=== PATIENT | female | born 1945 | race Caucasian/White ===

== ENCOUNTER 2016-12-22 10:39 | Inpatient (IN) | payer OTHER ==
--- NOTE | ~2016-12-22 | DS ---
Discharge Summary [id number] [facility] [place]. [address] NAME: MARINA RAPHAEL : 49 STATUS : DIS IN PAT#: [id number] AGE: 71 ADM/REG DATE : 12/22/16 MR#: [id number] REPORT SERV DATE: 12/24/16 DICTATED BY: JOSE WILCOX DATE: 12/23/16 REPORT STATUS : Draft TRANSCRIBED BY: MODL DATE: 12/23/16 ADMISSION DATE: 12/22/2016 DISCHARGE DATE: 12/23/2016 DISCHARGE DIAGNOSIS: Cerebrovascular accident, resolving status post tPA. The patient had dysarthria, left-sided weakness, and right-sided numbness. She had an NIHSS scale [address] been seen [address] Dr[address] Blank, Neurology. Given tPA. Had marked improvement. This morning, still left with mild dysarthria that had improved and good function of left lower extremity. Some numbness remains on the right side. The patient's vital signs are stable. She is afebrile. Awake, alert, and oriented x3. Echo evaluation is almost complete. Speech evaluation with recommendation to [facility] for further speech therapy. Slight dysarthria remains. Her TSH is 0.005, suppressed. She is taking her own thyroid medications. Renal artery ultrasound that was done for stenosis is normal. MRI of the brain and CT of the brain were normal. SHAINA/LUIS Jose Wilcox M.D. / [id number] CC: Syd Reyes M.D. Seong-joo Jeong, M.D.
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
[2016-12-22 10:29] LABS: BASOPHILS 0.2 %; BASOPHILS ABSOLUTE 0.02 10/3/uL (0.0-0.16); EOSINOPHILS ABSOLUTE 0.09 10/3/uL (0.0-0.53); HEMATOCRIT 40.9 % (36.0-48.0); HEMOGLOBIN 14.3 g/dL (12.0-16.0); IMMATURE GRANULOCYTES 0.1 %; IMMATURE GRANULOCYTES ABSOLUTE 0.01 10/3/uL (0.0-0.11); LYMPHOCYTES 30.4 %; LYMPHOCYTES ABSOLUTE 2.67 10/3/uL (0.67-4.30); MANUAL DIFF NO %; MEAN CORPUSCULAR HEMOGLOB 30.8 pg (26.0-34.0); MEAN PLATELET VOLUME 10.2 fL (9.2-13.0); NEUTROPHILS 60.3 %; NEUTROPHILS ABSOLUTE 5.28 10/3/uL (2.02-8.40); PLATELET COUNT 243 10/3/uL (150-400); RBC DISTRIBUTION WIDTH 12.5 % (12.0-16.0); RED CELL COUNT 4.65 10/6/uL (4.0-5.6); WHITE BLOOD CELLS 8.8 10/3/uL (4.5-10.5)
[2016-12-22 10:36] LABS: INTERNATIONAL NORMAL RATI 1.1 UNITS (-); PARTIAL THROMBO TIME 25.6 SEC (22.5-37.2); PROTIME (NOT ORD) 14.1 SEC (12.0-14.5)
[~2016-12-22 10:39] MED LIST: ADVAIR250 INH; ALIGN4 MG PO; BIO IDENTICAL PO; COZAAR100 MG PO; ESTROGEN CREAM TOP; LUTEIN10 MG OR; MACRODANTIN 10100 MG PO; MULTIPLE VIT PO; NASONEX NAS; NEXIUM40 PO; PR25 PO; SPIRO50 PO; SUCR PO; ZOFRAN4 PO; ZYRTEC ALLGY10 MG PO
[2016-12-22 10:44] LABS: ALBUMIN 3.5 G/DL (3.5-5.0); CALCIUM, SERUM 8.4 MG/DL (8.5-10.4); CHLORIDE, SERUM 109 MMOL/L (96-112); CO2 (CARBON DIOXIDE) 23 MMOL/L (24-34); CREATININE 0.83 MG/DL (0.55-1.02); GFR AFRICAN AMERICAN 83 ML/MIN (>=60); GFR NON AFRICAN AMERICAN 72 ML/MIN (>=60); GLOBULIN 3.5 G/DL (2.5-4.1); GLUCOSE, SERUM 99 MG/DL (60-99); POTASSIUM, SERUM 3.4 MMOL/L (3.5-5.3); SGOT(AST) 15 U/L (5-40); SGPT(ALT) 21 U/L (5-65); SODIUM, SERUM 142 MMOL/L (135-148); TOTAL BILIRUBIN 0.5 MG/DL (0-1.2); TROPONIN I <0.02 NG/ML (<0.05)
[2016-12-22 10:45] LABS: ALKALINE PHOSPHATASE 59 U/L (45-117); BUN (BLOOD UREA NITROGEN) 15 MG/DL (6-23)
[2016-12-22] MEDS ORDERED: COZAAR100 MG PO (10:53)
[2016-12-22] MEDS ORDERED: NORV10 PO (10:53)
[2016-12-22] MEDS ORDERED: HORMONE COMPOUND (10:53)
[2016-12-22] MEDS ORDERED: NATURE-THROI16.25 MG PO (10:54)
[2016-12-22] MEDS ORDERED: NATURE THROID PO (10:55)
[2016-12-22] MEDS ORDERED: NATURE-THROID PO (10:55)
[2016-12-22] MEDS ORDERED: GARLIC PO (10:55)
[2016-12-22] MEDS ORDERED: NITROSTAT0.4 MG SL (10:55)
[2016-12-22] MEDS ORDERED: CHOLINE PO (10:56)
[2016-12-22] MEDS ORDERED: HAWTHORN BER500 MG PO (10:56)
[2016-12-22 18:49] LABS: CHOL/HDL RATIO(NOT ORDER) 2.8 (0-5); CHOLESTEROL 152 MG/DL (< 200); CPK 65 U/L (0-200); HDL CHOLESTEROL 54 MG/DL (> 49); LDL CHOLESTEROL 70 MG/DL (< 130); NON-HDL CHOLESTEROL 98 MG/DL (< 160); TRIGLYCERIDE 141 MG/DL (< 150); TROPONIN I <0.02 NG/ML (<0.05)
[2016-12-22 18:52] LABS: CK-MB < 0.5 NG/ML; ULTRASENSITIVE TSH < 0.005 MCIU/ML (0.358-3.740)
[2016-12-23 02:25] LABS: CPK 49 U/L (0-200); TROPONIN I <0.02 NG/ML (<0.05)
[2016-12-23 02:28] LABS: CK-MB < 0.5 NG/ML
[2016-12-23] MEDS ORDERED: ASA5GR PO (15:51)
[2016-12-23] MEDS ORDERED: LIPITOR40 PO (15:54)
[2016-12-23] MEDS ORDERED: B1100 PO (15:56)
[2017-01-13 08:02] LABS: CREATININE 0.8 MG/DL (0.55-1.02)
[2017-01-19] MEDS ORDERED: NATURE-THROI16.25 MG PO (08:54)
[2017-01-19] MEDS ORDERED: ASAB PO (08:55)
[2017-01-19] MEDS ORDERED: KRILLOIL (08:56)
[2017-01-19] MEDS ORDERED: TOPXL25 PO (08:56)
[2017-01-20] MEDS ORDERED: NITROSTAT0.4 MG SL (07:36)
== END 2016-12-23 16:48 | disposition home or self-care (01) | DRG 63 ==
LOC: ER 10:39 → CCU 13:31
PROVIDERS: Emergency Medicine; Internal Medicine Critical Care Medicine; Psychiatry & Neurology Neurology
DX: I63.9 Cerebral infarction, unspecified (principal); I36.1 Nonrheumatic tricuspid (valve) insufficiency; I10 Essential (primary) hypertension; R47.1 Dysarthria and anarthria; R53.1 Weakness; I25.10 Atherosclerotic heart disease of native coronary artery without angina pectoris; E03.9 Hypothyroidism, unspecified; R07.9 Chest pain, unspecified; I34.0 Nonrheumatic mitral (valve) insufficiency; R94.39 Abnormal result of other cardiovascular function study; Z88.6 Allergy status to analgesic agent; Z88.8 Allergy status to other drugs, medicaments and biological substances
CPT/HCPCS: 36415; 70450; 70496; 70498; 70551; 71010; 80053; 80061; 82140; 82550; 82553; 82607; 82746; 82962; 83036; 84443; 84484; 85025; 85610; 85730; 86850; 86900; 86901; 87641; 92523-GN; 93005; 93017; 93306; 93975; 96365; 97161-GP; 97166-GO; 99291; A9270-GY; J2997; Q9967

== ENCOUNTER 2017-02-08 13:22 | Inpatient (IN) | payer OTHER ==
--- NOTE | ~2017-02-08 | DS ---
Discharge Summary [facility] [address] [facility] [place]. [address] NAME: MARINA RAPHAEL : 49 STATUS : DIS IN PAT#: [id number] AGE: 71 ADM/REG DATE : 02/08/17 MR#: [id number] REPORT SERV DATE: 02/11/17 DICTATED BY: JOSE HILL DATE: 02/11/17 REPORT STATUS : Draft TRANSCRIBED BY: MODL DATE: 02/11/17 ADMISSION DATE: 02/08/2017 DISCHARGE DATE: 02/11/2017 DRYWALL CONTRACTOR: Dr. Stone. ENT: Dr. Del Cid. FINAL DIAGNOSES: 1. Hypotension with history of hypertension. 2. Possible transient ischemic attack with possible history of recent cerebrovascular accident with left hemiparesis. 3. Chest pain and supraventricular tachycardia. 4. Hypothyroidism with low TSH and normal free T4. DIAGNOSTIC EXAM: CAT scan of the brain without contrast showing no evidence of acute intracranial pathology. Chest x-ray, no acute cardiopulmonary abnormality. MRI of the brain showing no acute intracranial pathology. Normal MRI of the brain, stable exam. MRA of the head showing unremarkable intracranial MRA. MRA of the neck showing unremarkable MRA of the carotid arteries. No significant atherosclerotic plaque or stenosis. Normal caliber and antegrade flow bilateral vertebral arteries. HOSPITAL COURSE: Please refer to the H and P done by Dr. Yang dated 02/08/2017. Briefly, this is a 71-year-old female, who had a possible stroke with left hemiparalysis six weeks ago, got tPA, and improved. The patient then went home, still having some left leg weakness. Then, the patient came to the emergency room on the day of admission for an episode of speech loss. The patient called her pre fabricator and was told to come to the emergency room, as they thought that she was having another stroke. Further history from the patient revealed that she actually was having these periods of dizziness and this episode wherein she feels like she is going to pass out, but really does not lose consciousness and she gets better after a few seconds. She was found to have low blood pressure and her Norvasc and losartan were held, and we got Neuro and Cardiology involved. Cardiology saw that the patient had a period of SVT, cleared the heart, and signed off. They said that it might be the thyroid supplementation, as the TSH is low. The patient also got a Neurology consult, where the above tests were done and they mentioned that the patient might not have a stroke, as the MRA and CAT scan look normal and also said that it might be too much thyroid medications. When presented with this to the patient, she said that Dr. Del Cid has been following her up and gets periodic tests and placed her on these medications. She would want to follow up with Dr. Del Cid, but I mentioned that it might be worthwhile for her to see an supervisor nut processing as well, but I would defer this to her present doctors. Meanwhile, with the stoppage of two of her blood pressure medications and giving her fluids, her symptoms seem to have improved and on the day of discharge, she did not have any more of these dizzy spells. The patient will now be discharged with the above diagnosis. FOLLOWUP: She will follow up with her PCP, Alejandro Tucker, in a week's time. Follow up Discharge Summary [address] [address] NAME: MARINA RAPHAEL : 49 STATUS : DIS IN PAT#: [id number] AGE: 71 ADM/REG DATE : 02/08/17 MR#: [id number] REPORT SERV DATE: 02/11/17 DICTATED BY: JOSE HILL DATE: 02/11/17 REPORT STATUS : Draft TRANSCRIBED BY: LUIS DATE: 02/11/17 with Cardiology, Dr. Stone, in three to four weeks. She will have a followup with Neurology in [facility]. She was mentioned the name Dr. Venegas and follow up with supervisor nut processing, but I would defer that on an outpatient basis. MEDICATIONS: She will be on the following medications, aspirin 325 mg a day, Toprol-XL 25 mg a day, and thyroid 15 mg p.o. daily. She will be off her losartan, amlodipine, progesterone, and hormonal cream for now. This has been explained to the patient at length. TIME SPENT: 40 minutes. DICTATED BY: Syd Jarvis/LUIS Jose Hill M.D. / [id number] CC: Syd Jarvis M.D.
--- NOTE | ~2017-02-08 | HP ---
History And Physical [address] [place]. [address] NAME: MARINA RAPHAEL : 49 STATUS : ADM Yazmin PAT#: [id number] AGE: 71 ADM/REG DATE : 02/08/17 MR#: [id number] REPORT SERV DATE: 02/08/17 DICTATED BY: DIAZ GARCIA DATE: 02/08/17 REPORT STATUS : Draft TRANSCRIBED BY: MODL DATE: 02/08/17 DATE OF ADMISSION: 02/08/2017 HISTORY OF PRESENT ILLNESS: A 71-year-old, white female, who had tPA about six weeks ago and was seen in the intensive care unit by Dr. Leo Wilcox and Dr. Eboni Edouard. She was admitted on 12/22/2016. She had tPA and had resolution of her left hemiparesis and dysarthria. She had another episode of speech loss, now improving some spontaneously. It lasted for several hours, beginning at about 8 this morning, came to the emergency room at 1 p.m. She was seen by Dr. Mcqueen and referred for further evaluation. Dr. Blank evaluated and said no tPA was necessary but desired to do MRI scan, MRA to be done tomorrow morning. She does have a loop recorder placed by Dr. Guillermo Betancourt. 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 She has weakness still in her left lower extremity and speech is improving. Her understanding has never been a problem. She has no headache or eye pain. Her blood pressure was low. She has been taking numerous new medications since she was discharged from the hospital previously. PAST MEDICAL HISTORY: As above plus. HOME MEDICATIONS: Include the following: Amlodipine 10 mg p.o. at bedtime, aspirin 325 p.o. daily, losartan 100 mg p.o. daily, metoprolol 25 mg XL 1 p.o. daily, nature thyroid 16.25 mg p.o. daily, progesterone puneet compounded, hormone cream has been used as well. MEDICAL HISTORY: She does have a history of hypertension, thyroid disease, status post radiation therapy and surgery for thyroid previously, history of hiatal hernia bilaterally. ALLERGIES: STADOL, IBUPROFEN, NAPROXEN WITH INTOLERANCE TO STATIN DRUGS. SOCIAL HISTORY: She does not smoke or drink. 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 They have been sent out by a [employer] in the past. [place] lived in [place] and [place] in [place] in the past. FAMILY HISTORY: There is no high blood pressure, heart disease, or stroke that run in the family. REVIEW OF SYSTEMS: She has had some chest pain off and on, has been in the emergency room in the past for this with negative workup. Dr. Stone had done cardiac catheterization on her 4 weeks after the initial tPA had been given on 12/22/2016. She also had a loop recorder placed by Dr. Guillermo Betancourt. Her primary care doctor is Dr. Robert Tucker on [facility]. She has had no headache no eye pain double vision. No nausea vomiting, diarrhea, fits, seizures, convulsions, melena, hematemesis. She did have weakness on the left side, mostly History And Physical [address] [address] NAME: MARINA RAPHAEL : 49 STATUS : ADM Yazmin PAT#: [id number] AGE: 71 ADM/REG DATE : 02/08/17 MR#: [id number] REPORT SERV DATE: 02/08/17 DICTATED BY: DIAZ GARCIA DATE: 02/08/17 REPORT STATUS : Draft TRANSCRIBED BY: LUIS DATE: 02/08/17 in the left lower extremity, but also in the hand to a lesser degree. Sensory is affected as well on that side. She has been unable to walk. She cannot lift her left leg off the bed now. She has had no change in the temperature of either extremity. The remainder of the review of systems is negative. PHYSICAL EXAMINATION: VITAL SIGNS: Her blood pressure at home was 96/63, blood pressure here on arrival 123/70 with a heart rate of 78, respiratory rate 16, afebrile. Oxygen saturation is 98%. HEENT: EOMI. Sclerae clear. Conjunctivae pink. NECK: No bruit. No JVD. CHEST: Clear to A and P. Tongue midline, non-deviated. No fasciculations. CHEST: Clear to A and P. HEART: Regular S1, S2 without murmur, gallop, or click. ABDOMEN: Soft, nontender. Bowel sounds positive. EXTREMITIES: Have no edema. Distal pulses are intact. Dorsalis pedis posterior tibial. NEUROLOGIC: She has brisk hyperreflexia of the left knee jerk greater than the right. Also of the right ankle. No clonus. Her procurement manager is diminished 4/5 strength in the left hand versus the right hand. Strength in the left lower extremity is 3/5 with motion across the bed, but not against gravity. Sensory is diminished subjectively bilaterally. SKIN: Without rash, ecchymosis, or bruising. LYMPHATICS: Negative. LABORATORY: Her chest x-ray showed no acute cardiopulmonary abnormalities. CT scan of her brain showed no evidence of acute intracranial problems. Her chest pain profile showed troponin less than 0.04. Sodium 141, potassium 3.9, creatinine 0.84, BUN 18, calcium was normal, magnesium 2.4. The hemoglobin 13.9, hematocrit 39.4, white count 10.0, platelets were 278,000. INR 1.1. On 02/03/2017 she had been in the emergency room with a troponin less than 0.02 as well. Her EKG shows normal sinus rhythm and is normal EKG without ST or T-wave changes. ASSESSMENT: 1. Recurrent stroke, left side. Left upper and left lower extremity both sensory and motor, suspect cortical problem. The patient did notice palpitations prior to the episode like she did before. 2. Palpitations. We need loop recorder interrogated to see if she is having atrial fibrillation and need to anticoagulate possibly. 3. Dysarthria off and on about 12 times just lasting a few seconds at a time since discharge from the hospital, but today worsened. Failed statin therapy due to lethargy and trouble thinking. 4. Hypotension. 5. History of hypertension, on medication. 6. Recent tPA with aborted stroke. PLAN: I am going to withheld her blood pressure medications in line with permissive History And Physical [address] [address] NAME: MARINA RAPHAEL : 49 STATUS : ADM Yazmin PAT#: [id number] AGE: 71 ADM/REG DATE : 02/08/17 MR#: [id number] REPORT SERV DATE: 02/08/17 DICTATED BY: DIAZ GARCIA DATE: 02/08/17 REPORT STATUS : Draft TRANSCRIBED BY: MODL DATE: 05/22/17 hypertension for this. I will use subcutaneous Lovenox for DVT prophylaxis, repeat the MRI scan of the brain as requested by Dr. Edouard and consult Dr. Edouard for further recommendations. Continue the aspirin for now. The blood pressure may have dropped too low and caused some significant problems in the past. ADDENDUM: The patient has not yet gotten appointment with neurologist for followup after previous stroke. We will work on this during the hospitalization. The patient is being admitted to observation and she has had previous workup for the stroke and is resolving now and awaiting recommendations from Neurology for reason for admitting the patient. DB/MODL Diaz Garcia M.D. / [id number] CC: DO Alejandro Ford M.D. Lisa Gail Carkner, M.D. Gregory Keith Bruce, M.D.
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
--- NOTE | ~2017-02-08 | CN ---
Consultation Report [facility] [address] [place]. [address] NAME: MARINA RAPHAEL : 49 STATUS : ADM Yazmin PAT#: [id number] AGE: 71 ADM/REG DATE : 02/08/17 MR#: [id number] REPORT SERV DATE: 02/09/17 DICTATED BY: ALEJANDRO MCKEE DATE: 02/08/17 REPORT STATUS : Draft TRANSCRIBED BY: LUIS DATE: 02/08/17 CARDIOLOGY CONSULTATION DATE OF CONSULTATION: [facility] PHYSICIAN: Shadia Stone M.D. REASON FOR CONSULTATION: Palpitations, dysarthria, and history of stroke. HISTORY OF PRESENT ILLNESS: Ms. Raphael is a 71-year-old woman who had a stroke and was given tPA. I believe it was in December. She has had some recurrent chest pain and an abnormal stress test, but subsequent arteriogram which showed non-obstructive disease. She reported a week ago, she was out hiking and riding her bike. She noticed that her heart was racing, that she described her heart rate was elevated above normal, but she described a heart rate in the 80 to 109 range. She does report that she may have been dehydrated and was very hot that day. She has had a little bit of occasional dizziness and lightheadedness and that has persisted recently and she did feel like her blood pressures are running a little lower recently. Today, she began to have some speech issues and came to the emergency room. She has also had some chest discomfort on numerous episodes including an evaluation in the emergency room about a week ago. REVIEW OF SYSTEMS: The review of systems is as per the history of present illness. Ten other systems are negative. PAST MEDICAL HISTORY: 1. Stroke with tPA, I believe in December. 2. Hypertension. 3. Hypothyroidism. 4. Recurrent chest pain. FAMILY HISTORY: Positive for heart disease. SOCIAL HISTORY: No tobacco. No alcohol. ALLERGIES: BUTORPHANOL AND SPIRONOLACTONE. MEDICINES: Amlodipine 10 daily, aspirin 325 daily, Cozaar 100 daily, metoprolol succinate 25 daily, Nature-Throid 16.25 daily, progesterone, and hormone cream. PHYSICAL EXAMINATION: VITAL SIGNS: The patient is afebrile. Heart rate 72 and blood pressure 120/68. GENERAL: The patient is pleasant white female, in no apparent distress. HEENT: Conjunctivae are anicteric, no xanthelasma, lips without cyanosis. Consultation Report [facility] [id number] [place]. [address] NAME: MARINA RAPHAEL : 49 STATUS : ADM Yazmin PAT#: [id number] AGE: 71 ADM/REG DATE : 02/08/17 MR#: [id number] REPORT SERV DATE: 02/09/17 DICTATED BY: ALEJANDRO MCKEE DATE: 02/08/17 REPORT STATUS : Draft TRANSCRIBED BY: MODL DATE: 02/08/17 NECK: Supple, normal JVP, carotids +2 without bruit. LUNGS: Clear to auscultation bilaterally, no wheezes, rales or rhonchi. CARDIOVASCULAR: Regular rate and rhythm. Normal S1 and S2 without S3. No murmur or rub. PMI is nondisplaced. ABDOMEN: Soft, nontender, nondistended, with normal bowel sounds. No hepatomegaly. EXTREMITIES: No clubbing, cyanosis or edema. NEURO/PSYCH: Alert and oriented to person, place and time. No obvious neurologic deficits. Mood and affect normal. LABORATORY DATA: Telemetry shows sinus rhythm. EKG is normal. IMPRESSION: 1. Recent stroke. 2. Recent dizziness and dysarthria, possibly transient ischemic attack related. 3. Recurrent chest discomfort with a negative arteriogram in January of 2017. 4. Hypertension. 5. Hypothyroidism. 6. History of intolerance to statins. 7. Implantable loop monitor placed. RECOMMENDATIONS: Ms. Raphael presents with some puzzling symptoms. They certainly could be TIA related. We will try to have her loop monitor interrogated tomorrow. We will have to find out who actually handles that. We will see if we can figure it out during normal working hours tomorrow, and I would continue your current treatment and evaluation. WO/MODL Alejandro Mckee M.D., Ph.D, F.A.C.C. / [id number] CC: DO Alejandro Ford M.D.
[~2017-02-08 13:22] MED LIST changes: +ASA5GR PO; +ASAB PO; +B1100 PO; +CHOLINE PO; +GARLIC PO; +HAWTHORN BER500 MG PO; +HORMONE COMPOUND; +KRILLOIL; +LIPITOR40 PO; +NATURE THROID PO; +NATURE-THROI16.25 MG PO; +NATURE-THROID PO; +NITROSTAT0.4 MG SL; +NORV10 PO; +TOPXL25 PO
[2017-02-08 13:49] LABS: BASOPHILS 0.3 %; BASOPHILS ABSOLUTE 0.03 10/3/uL (0.0-0.16); EOSINOPHILS 1.3 %; EOSINOPHILS ABSOLUTE 0.13 10/3/uL (0.0-0.53); HEMATOCRIT 39.4 % (36.0-48.0); HEMOGLOBIN 13.9 g/dL (12.0-16.0); IMMATURE GRANULOCYTES 0.2 %; IMMATURE GRANULOCYTES ABSOLUTE 0.02 10/3/uL (0.0-0.11); LYMPHOCYTES ABSOLUTE 3.91 10/3/uL (0.67-4.30); MANUAL DIFF NO %; MEAN CORPUS HGB CONC 35.3 g/dL (32.0-36.0); MEAN CORPUSCULAR VOLUME 87.8 fL (80-100); NEUTROPHILS 52.2 %; NEUTROPHILS ABSOLUTE 5.23 10/3/uL (2.02-8.40); PLATELET COUNT 278 10/3/uL (150-400); RBC DISTRIBUTION WIDTH 12.3 % (12.0-16.0); RED CELL COUNT 4.49 10/6/uL (4.0-5.6)
[2017-02-08 13:57] LABS: INTERNATIONAL NORMAL RATI 1.1 UNITS (-); PROTIME (NOT ORD) 13.7 SEC (12.0-14.5)
[2017-02-08 14:06] LABS: BUN (BLOOD UREA NITROGEN) 18 MG/DL (6-23); CALCIUM, SERUM 8.8 MG/DL (8.5-10.4); CHEST PAIN PROFILE TAT 0 Hrs 21 Mins; CHLORIDE, SERUM 107 MMOL/L (96-112); CO2 (CARBON DIOXIDE) 27 MMOL/L (24-34); CREATININE 0.84 MG/DL (0.55-1.02); GFR AFRICAN AMERICAN 82 ML/MIN (>=60); GFR NON AFRICAN AMERICAN 71 ML/MIN (>=60); GLUCOSE, SERUM 96 MG/DL (60-99); POTASSIUM, SERUM 3.9 MMOL/L (3.5-5.3); SODIUM, SERUM 141 MMOL/L (135-148); TROPONIN I <0.02 NG/ML (<0.05)
[2017-02-08] MEDS ORDERED: ASA5GR PO (14:19)
[2017-02-08] MEDS ORDERED: HORMONE (14:23)
[2017-02-08] MEDS ORDERED: PROGESTERONE TROCHE PO (14:23)
[2017-02-08] MEDS ORDERED: HORMONE CREAM T (14:24)
[2017-02-08] MEDS ORDERED: NATURE-THROI16.25 MG PO (14:33)
[2017-02-08 18:51] LABS: CHOLESTEROL 180 MG/DL (< 200); HDL CHOLESTEROL 61 MG/DL (> 49); LDL CHOLESTEROL 76 MG/DL (< 130); NON-HDL CHOLESTEROL 119 MG/DL (< 160)
[2017-02-08 18:52] LABS: TRIGLYCERIDE 219 MG/DL (< 150)
[2017-02-08 19:37] LABS: CPK 90 U/L (0-200); TROPONIN I <0.02 NG/ML (<0.05)
[2017-02-08 19:38] LABS: CK-MB 0.6 NG/ML
[2017-02-09 03:36] LABS: CPK 77 U/L (0-200); TROPONIN I <0.02 NG/ML (<0.05)
[2017-02-09 03:37] LABS: CK-MB 0.6 NG/ML
[2017-02-09 11:22] LABS: CK-MB 0.8 NG/ML; CPK 68 U/L (0-200); TROPONIN I <0.02 NG/ML (<0.05)
[2017-02-10 06:50] LABS: BASOPHILS 0.4 %; BASOPHILS ABSOLUTE 0.03 10/3/uL (0.0-0.16); EOSINOPHILS 2.1 %; EOSINOPHILS ABSOLUTE 0.17 10/3/uL (0.0-0.53); HEMATOCRIT 41.4 % (36.0-48.0); HEMOGLOBIN 14.4 g/dL (12.0-16.0); IMMATURE GRANULOCYTES 0.1 %; IMMATURE GRANULOCYTES ABSOLUTE 0.01 10/3/uL (0.0-0.11); LYMPHOCYTES 42.5 %; LYMPHOCYTES ABSOLUTE 3.38 10/3/uL (0.67-4.30); MANUAL DIFF NO %; MEAN CORPUS HGB CONC 34.8 g/dL (32.0-36.0); MEAN CORPUSCULAR HEMOGLOB 30.8 pg (26.0-34.0); MEAN CORPUSCULAR VOLUME 88.7 fL (80-100); MONOCYTES 7.2 %; MONOCYTES ABSOLUTE 0.57 10/3/uL (0.21-1.20); NEUTROPHILS 47.7 %; NEUTROPHILS ABSOLUTE 3.79 10/3/uL (2.02-8.40); PLATELET COUNT 280 10/3/uL (150-400); RBC DISTRIBUTION WIDTH 12.6 % (12.0-16.0); RED CELL COUNT 4.67 10/6/uL (4.0-5.6)
[2017-02-10 06:58] LABS: BUN (BLOOD UREA NITROGEN) 15 MG/DL (6-23); CALCIUM, SERUM 8.2 MG/DL (8.5-10.4); CHLORIDE, SERUM 112 MMOL/L (96-112); CK-MB 0.8 NG/ML; CO2 (CARBON DIOXIDE) 23 MMOL/L (24-34); CPK 70 U/L (0-200); CREATININE 0.92 MG/DL (0.55-1.02); GFR AFRICAN AMERICAN 74 ML/MIN (>=60); GFR NON AFRICAN AMERICAN 64 ML/MIN (>=60); GLUCOSE, SERUM 99 MG/DL (60-99); POTASSIUM, SERUM 3.9 MMOL/L (3.5-5.3); SODIUM, SERUM 143 MMOL/L (135-148)
[2017-02-10 11:46] LABS: FREE T4 1.09 NG/DL (0.76-1.46)
[2017-02-10 11:49] LABS: ULTRASENSITIVE TSH < 0.005 MCIU/ML (0.358-3.740)
== END 2017-02-11 11:44 | disposition home or self-care (01) | DRG 69 ==
LOC: ER 13:22 → 1SO 17:02
PROVIDERS: Emergency Medicine; Internal Medicine
DX: G45.9 Transient cerebral ischemic attack, unspecified (principal); I47.1 Supraventricular tachycardia; I69.354 Hemiplegia and hemiparesis following cerebral infarction affecting left non-dominant side; I95.9 Hypotension, unspecified; R47.1 Dysarthria and anarthria; G47.33 Obstructive sleep apnea (adult) (pediatric); I10 Essential (primary) hypertension; E03.9 Hypothyroidism, unspecified; Z79.82 Long term (current) use of aspirin; Z79.899 Other long term (current) drug therapy; Z95.818 Presence of other cardiac implants and grafts; Z85.850 Personal history of malignant neoplasm of thyroid; Z88.5 Allergy status to narcotic agent; Z88.6 Allergy status to analgesic agent; Z88.8 Allergy status to other drugs, medicaments and biological substances
CPT/HCPCS: 70450; 70544; 70547; 70551-52; 71010; 80048; 80061; 82550; 82553; 82962; 83036; 83735; 84439; 84443; 84484; 85025; 85610; 85730; 93005; 97162-GP; 97166-GO; 99291; A9270-GY; J2405